=== PATIENT | male | born 1985 ===

== ENCOUNTER 2017-07-25 21:43 | Emergency (ER) | payer OTHER ==
[2017-07-25 21:52] VITALS: RESP 18; TEMP 98.1
[2017-07-25] MEDS ORDERED: Albuterol-Ipratrop 3 mg / 0.5 (3 ml) UD IH STA (22:26)
[2017-07-25] MEDS ORDERED: guaiFENesin 100 mg/5 ml Syrup UD PO ONE (22:26)
[2017-07-25 23:01] LABS: BASO # 0.1 K/uL (0.0-0.2); BASO % 0.7 % (0.0-2.0); EOS # 0.2 K/uL (0.0-0.7); EOS % 2.2 % (0.0-4.0); HEMOGLOBIN 14.9 g/dL (12.0-18.0); LYMPH # 1.8 K/uL (1.0-4.3); LYMPH % 16.4 % (20.0-40.0); MEAN CELL VOLUME 84.6 fl (80.0-94.0); MEAN CORPUSCULAR HEMOGLOBIN 28.3 pg (27.0-31.0); MEAN CORPUSCULAR HGB CONC 33.4 g/dL (33.0-37.0); MEAN PLATELET VOLUME 10.2 fl (7.2-11.7); MONO % 9.1 % (0.0-10.0); NEUT # 8.1 K/uL (1.8-7.0); NEUT % 71.6 % (50.0-75.0); RBC 5.27 Mil/uL (4.40-5.90); RED CELL DISTRIBUTION WIDTH 13.7 % (11.5-14.5); WHITE BLOOD COUNT 11.3 K/uL (4.8-10.8)
[2017-07-25] MEDS ORDERED: Albuterol-Ipratrop 3 mg / 0.5 (3 ml) UD ONE (23:01)
[2017-07-25] MEDS ORDERED: guaiFENesin 100 mg/5 ml Syrup UD ONE (23:01)
[2017-07-25 23:11] LABS: ALB/GLOB RATIO 1.2 (1.0-2.1); ALBUMIN 4.6 g/dL (3.5-5.0); ALT/SGPT 36 U/L (21-72); AST/SGOT 26 U/L (17-59); BLOOD UREA NITROGEN 15 mg/dl (9-20); CALCIUM 9.7 mg/dL (8.4-10.2); GFR AFRICAN-AMERICAN > 60; GFR NON-AFRICAN AMERICAN > 60
--- NOTE | 2017-07-25 23:18 | ED PDOC ---
HPI: SOB/CHF/COPD Time Seen by Provider: 07/25/17 21:57 Chief Complaint (Nursing): Shortness Of Breath History Per: Patient History/Exam Limitations: no limitations Additional Complaint(s): 32-year-old male complains of cough associated with chills and SOB. Patient that he recently returned from a trip from [facility] 2 weeks ago, states that when he went to he was well, states while he was there, he developed a cough and started to feel ill. When he returned to the lab symptoms continued without improvement. Otherwise: (+) tactile fever last night, (+) chills, (+) sore throat, (-) chest pain, (+) dyspnea, (-) hemoptysis, (-) upper back pain, (+) travel, (-) recent hospitalization or surgery, (-) history of DVT. Past Medical History Vital Signs: Last Vital Signs Temp 98.1 F 07/25/17 21:48 Pulse 94 H 07/25/17 21:48 Resp 18 07/25/17 22:00 BP 138/75 07/25/17 21:48 Pulse Ox 100 07/25/17 23:25 - Medical History PMH: No Chronic Diseases - Family History Family History: States: No Known Family Hx - Social History Current smoker - smoking cessation education provided: No - Home Medications Home Medications: Ambulatory Orders Medication Instructions Recorded Famotidine [Pepcid] 20 mg PO Q12 #14 tab 11/11/14 Ondansetron ODT [Zofran ODT] 4 mg PO Q6H PRN #16 odt 11/11/14 Acetaminophen [Acetaminophen Extra 2 tab PO Q6 PRN #24 tablet 08/04/15 Strength] Albuterol HFA [Ventolin HFA 90 2 puff IH [id number] PRN #1 inhaler 08/04/15 mcg/actuation (8 g)] Ibuprofen [Motrin] 1 tab PO Q8 PRN #21 tab 08/04/15 Promethazine/Codeine 5 ml PO Q12 PRN #100 ml 08/04/15 [Codeine/Promethazine 10 MG/5 Ml-6.25 MG/5 Ml] Pseudoephedrine [Sudafed Tab] 1 tab PO Q6 PRN #24 tab 08/04/15 - Allergies Allergies/Adverse Reactions: Allergies Allergy/AdvReac Type Severity Reaction Status Date / Time No Known Allergies Allergy Verified 11/10/14 23:50 Wells Criteria for PE - Wells Criteria for Pulmonary Embolism Clinical Signs and Symptoms of DVT: No P.E is #1 Diagnosis, or Equally Likely: Yes Heart Rate >100: No Immobilization at least 3 days;Surgery previous 4 weeks: No Previous, objectively diagnosed PE or DVT: No Hemoptysis: No Malignancy w/treatment within 6 months, or palliative: No Total Score: 1 Review of Systems Constitutional: Positive for: Fever, Chills. Negative for: Malaise ENT: Positive for: Throat Pain. Negative for: Nose Discharge, Throat Swelling Cardiovascular: Negative for: Chest Pain, Palpitations Respiratory: Positive for: Cough, Shortness of Breath Gastrointestinal: Negative for: Nausea, Vomiting Genitourinary Male: Negative for: Dysuria, Frequency Musculoskeletal: Negative for: Neck Pain, Back Pain Skin: Negative for: Rash Physical Exam - Physical Exam Comments: GENERAL APPEARANCE: Patient is awake, alert, oriented x 3, in mild respiratory distress. Patient is coughing. SKIN: Warm, dry; (-) cyanosis. EYES: (-) conjunctival pallor. ENMT: Mucous membranes moist. Airway patent: (-) stridor. Pharynx: (-) swelling, (-) erythema, (-) exudate. NECK: (-) tenderness, (-) stiffness, (-) lymphadenopathy. CHEST AND RESPIRATORY: (-) rhonchi, (-) rales, (-) wheezes, (-) pleural rub; (+ ) mild decrease in breath sounds at the bases. HEART AND CARDIOVASCULAR: (-) irregularity; (-) murmur, (-) gallop. ABDOMEN AND GI: Soft; (-) tenderness. EXTREMITIES: (-) deformity; (-) edema. NEURO AND PSYCH: Mental status as above. Cranial nerves grossly intact; strength symmetric. - Laboratory Results Result Diagrams: 07/25/17 22:55 07/25/17 22:55 - ECG O2 Sat by Pulse Oximetry: 100 Medical Decision Making Medical Decision Making: Impression : r/o pneumonia, consider PE, and bronchitis Plan : -- Labs -- IV -- Rapid and fluent -- Rapid strep -- CXR -- Albuterol neb -- Guiafenesin PO -- Reassess and disposition CXR : NAD, as read by LARA Grimes flu : (-) Rapid strep : (-) Labs reviewed, patient has a wbc of 11. CMP wnl. D-Dimer pending. Case endorsed to LARA Gregory at 0000 pending d-dimer, re-evaluation and final disposition. Disposition - Clinical Impression Clinical Impression: Cough, SOB (shortness of breath) - Patient ED Disposition Is Patient to be Admitted: Transfer of Care (Case endorsed to LARA Gregory at 0000 pending d-dimer, re-evaluation and final disposition.) Counseled Patient/Family Regarding: Studies Performed, Diagnosis - Disposition Disposition Time: 00:00 Condition: STABLE Forms: [employer] (Lebanese) - PA / BLOCKER POLISHING / Resident Statement MD/DO has reviewed & agrees with the documentation as recorded.
[2017-07-25 23:22] LABS: INFLUENZA A B NEGATIVE FOR FLU A/B (NEGATIVE)
[2017-07-25 23:48] LABS: PARTIAL THROMBOPLASTIN TIME 35.2 Seconds (25.6-37.1); PROTHROMBIN TIME 11.5 Seconds (9.8-13.1)
--- NOTE | 2017-07-26 00:23 | ED PDOC ---
- Laboratory Results Result Diagrams: 07/25/17 22:55 07/25/17 22:55 - ECG O2 Sat by Pulse Oximetry: 100 - Progress ED Course And Treament: Case endorsed to life underwriter from Singh DAVISON pending labs Patient educated on findings, discharged with rx Albuterol HFA, promethazine with codeine, ibuprofen Advised fluids, rest Follow up PMD 2-3 days. Return precautions given Disposition - Clinical Impression Clinical Impression: Bronchitis - POA Present On Arrival: None - Disposition Disposition: Routine/Home Disposition Time: 00:21 Condition: IMPROVED Prescriptions: Albuterol Sulfate [Ventolin Hfa] 1 - 2 puff IH Q4 PRN #1 inh PRN Reason: Cough Ibuprofen [Motrin Tab] 1 tab PO Q6 PRN #20 tab PRN Reason: Pain, Moderate (4-7) Promethazine/Codeine [Codeine/Promethazine 10 MG/5 Ml-6.25 MG/5 Ml] 5 ml PO Q8 PRN 3 Days udc PRN Reason: Cough Instructions: Acute Bronchitis Forms: [employer] (Austrian)
[2017-07-26 00:50] VITALS: BP 137/79; PULSE 89; O2SAT 98
--- NOTE | 2017-07-26 08:53 | RAD ---
HISTORY: cough COMPARISON: Chest radiograph dated 08/03/2015 TECHNIQUE: Chest PA and lateral FINDINGS: LUNGS: No active pulmonary disease. PLEURA: No significant pleural effusion identified. No pneumothorax apparent. CARDIOVASCULAR: Normal. OSSEOUS STRUCTURES: No significant abnormalities. VISUALIZED UPPER ABDOMEN: Normal. OTHER FINDINGS: None. IMPRESSION: No active disease.
== END 2017-07-26 00:50 | disposition home or self-care (01) ==
LOC: H.ER 21:43
DX: R05 Cough (principal); R06.02 Shortness of breath; J44.9 Chronic obstructive pulmonary disease, unspecified